=== PATIENT | female | born 1940 | race Caucasian/White ===

== ENCOUNTER 2024-11-23 14:35 | Outpatient (CLI) | payer MEDICARE, SELFPAY ==
[2024-11-23 16:11] LABS: Basophils % 0.9 % (0.1-2.0); Eosinophils # 0.2 Kmm3 (0.0-0.4); Eosinophils % 4.7 % (0.1-12.0); Hematocrit 40.5 % (37.0-47.0); Hemoglobin 13.6 g/dL (12.2-16.2); Immature Granulocytes # 0.02 10^3uL; Immature Granulocytes % 0.4 %; Lymphocytes # 1.3 K/mm3 (0.7-4.5); Lymphocytes % 28.5 % (10-50); Mean Corpuscular HGB Conc 33.6 g/dL (31.8-35.4); Mean Corpuscular Hemoglobin 29.7 pg (27.0-31.2); Mean Corpuscular Volume 88.4 fl (81-99); Mean Platelet Volume 10.4 fl (7.4-10.4); Monocytes # 0.4 K/mm3 (0.1-1.0); Monocytes % 8.1 % (1.7-9.3); Neutrophils # 2.7 K/mm3 (1.8-7.8); Neutrophils % 57.4 % (37.0-80.0); Nucleated Red Blood Cells # 0 10^3/uL; Nucleated Red Blood Cells % 0 %; Platelet Count 226 K/mm3 (142-424); Red Blood Count 4.58 M/mm3 (4.20-5.40); Red Cell Distribution Width 12.8 % (11.5-17.5); Red Cell Distribution Width-SD 41.1 fL; White Blood Count 4.7 K/mm3 (4.8-10.8)
[2024-11-23 17:06] LABS: Alanine Aminotransferase 20 U/L (12-78); Albumin Level 4.5 g/dl (3.5-5.0); Alkaline Phosphatase 58 U/L (38-126); Aspartate Amino Transferase 27 U/L (14-36); Bilirubin,Direct 0.3 mg/dl (0.0-0.4); Bilirubin,Indirect 0.2 mg/dL (0.0-0.9); Bilirubin,Total 0.5 mg/dl (0.2-1.3); Bilirubin,Unconjugated 0.2 mg/dL (0.0-1.1); Blood Urea Nitrogen 23 mg/dl (7-17); Calcium 9.6 mg/dl (8.4-10.2); Carbon Dioxide 30 mmol/L (22.0-30.0); Chloride 102 mmol/L (98-107); Chol/HDL Ratio 7.6 (1-3.5); Cholesterol 212 mg/dl (140-200); Estimated Glomerular Filt Rate 60 ml/min (>60); GFR (African American) 73 ML/MIN (>60); Glucose 83 mg/dl (74-100); HDL Cholesterol 28 mg/dl (40-60); Magnesium 2.1 mg/dl (1.6-2.3); Sodium 139 mmol/L (136-145); Total Protein,Serum 6.9 g/dl (6.3-8.2)
[2024-11-23 17:08] LABS: Triglycerides 435 mg/dl (30-150)
[2024-11-23 17:09] LABS: Anion Gap 10.5 mEq/L (5-15); Potassium 3.5 mmoL/L (3.5-5.1)
[2024-11-23 17:17] LABS: Direct LDL Cholesterol 97.99 mg/dL (100-129)
[2024-11-23 17:44] LABS: Hemoglobin A1C 5.2 % (4.0-6.0)
== END 2024-11-23 23:59 | disposition home or self-care (01) ==
LOC: LAB 16:14
PROVIDERS: PCP Family Medicine; Visit Provider Internal Medicine
DX: I34.0 Nonrheumatic mitral (valve) insufficiency (principal); I34.1 Nonrheumatic mitral (valve) prolapse; I10 Essential (primary) hypertension; I49.1 Atrial premature depolarization; I49.3 Ventricular premature depolarization; R94.31 Abnormal electrocardiogram [ECG] [EKG]; Z86.718 Personal history of other venous thrombosis and embolism
CPT/HCPCS: 36415; 80048; 80061; 80076; 83036; 83735; 84439; 84443; 85025; 93225; 93227

== ENCOUNTER 2024-11-25 15:14 | Outpatient (CLI) | payer MEDICARE, SELFPAY | END 2024-11-25 23:59 | disposition home or self-care (01) | LOC: RT 15:15 | PROVIDERS: PCP Family Medicine; Visit Provider Internal Medicine | DX: I44.0 Atrioventricular block, first degree (principal); I49.1 Atrial premature depolarization; I47.19 Other supraventricular tachycardia; I49.3 Ventricular premature depolarization; I34.1 Nonrheumatic mitral (valve) prolapse; I34.0 Nonrheumatic mitral (valve) insufficiency; I10 Essential (primary) hypertension; R94.31 Abnormal electrocardiogram [ECG] [EKG]; Z86.718 Personal history of other venous thrombosis and embolism | CPT/HCPCS: 93270 ==

== ENCOUNTER 2024-12-06 10:08 | Outpatient (CLI) | payer MEDICARE, SELFPAY ==
--- NOTE | 2024-12-06 10:30 | MR_ITS ---
APPROVED REPORT Cylinder Dyer: CLINICAL INDICATION Mitral valve prolapse, evaluation for mitral regurgitation TECHNIQUE Image Acquisition: Cardiac magnetic resonance (CMR) was performed on Siemens Espree MRI 1.5T scanner. Software platform sequences were performed using the Siemens Apropose MR B19 platform. A set of three-plane, low-resolution, large [id number] localizers were initially acquired. Then axial, coronal, sagittal TrueFISP, as well as axial HASTE images, were obtained. These were followed by gated TrueFISP breathold cinematic sequences obtained in the short axis with 8 mm slices and 2 mm gaps, 2-chamber (vertical long axis), 3-chamber, 4-chamber (horizontal long axis). A bolus of contrast was injected intravenously with first-pass sequences obtained in the short axis and four-chamber planes. After approximately 10 minutes, a TI topographical field assistant sequence was performed to determine the optimal TI time. Using the optimized TI time, delayed contrast enhancement segmented inversion???recovery TurboFLASH sequences were obtained in the short axis, 2-chamber, 3-chamber, and 4-chamber projections. 2D-velocity phase mapping was performed. Functional parameters were calculated by offline analysis on an independent workstation ([employer] Imaging Platform, [employer]). Contrast: ProHance??? (Gadoteridol) FINDINGS MORPHOLOGY AND FUNCTION Left ventricle: The left ventricle is normal in size. The indexed left ventricular end-diastolic volume (LVEDVi) is 64 ml/m2 (reference range 57-105 ml/m2 in males, 56-96 ml/m2 in females). Normal left ventricular systolic function is present. There is mild increase in left ventricular wall thickness, up to 11.5 mm. There are no regional wall motion abnormalities noted. LVEF is calculated at 58.0% (reference range 57-77%). Right ventricle: The right ventricle is normal in size. The indexed right ventricular end-diastolic volume (RVEDVi) is 72 ml/m2 (reference range 61-121 ml/m2 in males, 48-112 ml/m2 in females). Normal right ventricular systolic function is present. RVEF is calculated at 51.6% (reference range 52-72% in males, 51-71% in females). Atria: The left atrium is moderately dilated. The maximum indexed left atrial volume is 44 ml/m2 (reference range 26-52 ml/m2 in males, 27-53 ml/m2 in females). The right atrium is mildly dilated. The maximum indexed right atrial volume is 34 ml/m2 (reference range 18-90 ml/m2). Aorta: The diameter of the aortic annulus is normal, measuring 23 mm (coronal view reference range 21-30 mm in males, 19-27 mm in females). The diameter of the aortic sinus is normal, measuring 35 mm (coronal view reference range 25-42 mm in males, 24-36 mm in females). The diameter of the sinotubular junction is normal, measuring 25 mm (coronal view reference range 18-32 mm in males, 18-28 mm in females). The diameters of the ascending and descending thoracic aorta are normal. Main pulmonary artery: The main pulmonary artery diameter is normal. Pericardium: The pericardial thickness is normal. The pericardial thickness measures 1.0 mm (normal < 4.0 mm). There is no pericardial effusion. VALVES There is prolapse of the posterior mitral valve leaflet. No evidence of associated mitral annular disjunction (MAD). Mild mitral regurgitation is present. The MR jet is eccentric and anteriorly directed away from the prolapsed leaflet. Regurgitant volume is 17 mL on CMR (may be underestimated). Ratio of pulmonary to systemic flow, Qp:Qs ratio = 1.3 (normal < or = 1.2, hemodynamically significant shunt > 1.5), demonstrating no evidence of hemodynamically significant shunt. TISSUE CHARACTERIZATION Resting Perfusion: Normal myocardial blood flow at rest. No evidence of resting hypoperfusion. Myocardial Fibrosis and/or edema: Normal gadolinium kinetics are present. No evidence of late gadolinium enhancement is noted, consistent with absence of myocardial scarring, infarction, or necrosis. T2-weighted imaging demonstrates no evidence of myocardial edema or inflammation. OTHER Hiatal hernia is incidentally noted. IMPRESSION Normal LV size with normal LV systolic function. LVEDVi= 64 ml/m2 and LVEF= 58.0%. Normal RV size with normal RV systolic function. RVEDVi= 72 ml/m2 and RVEF= 51.6%. Biatrial enlargement. There is prolapse of the posterior mitral valve leaflet. No evidence of associated mitral annular disjunction (MAD). Mild mitral regurgitation is present. The MR jet is eccentric and anteriorly directed away from the prolapsed leaflet. Regurgitant volume is 17 mL on CMR (may be underestimated). No CMR evidence of myocardial scarring, infarction, or necrosis. No evidence of myocardial edema or inflammation. Perfusion analysis demonstrates normal blood flow at rest with no evidence of resting hypoperfusion. Ratio of pulmonary to systemic flow, Qp:Qs ratio = 1.3 (normal < or = 1.2, hemodynamically significant shunt > 1.5), demonstrating no evidence of hemodynamically significant shunt. Hiatal hernia is incidentally noted. COMPARISON None CRITICAL RESULT None COMMUNICATION Per this report The findings of this cardiac MR were reviewed, reported, and signed by Valdo Talavera MD ([employer] Member). Conclusion Electronically signed by : Kaila Talavera MD 12/25/2024 22:31:29
[2024-12-06] MEDS: SODIUM CHLORIDE 0.9% 10ML SYR (RAD ONLY) 10 ML IV (11:22)
[2024-12-06] MEDS: GADOTERIDOL INJ 20ML SYRINGE 16 ML IV (11:22)
[2024-12-06] MEDS: 0.9 % SODIUM CHLORIDE 50 ML VIAL 20 ML IV (11:22)
== END 2024-12-06 23:59 | disposition home or self-care (01) ==
LOC: RAD 10:09
PROVIDERS: PCP Family Medicine; Visit Provider Internal Medicine
DX: I34.1 Nonrheumatic mitral (valve) prolapse (principal); I51.7 Cardiomegaly; I34.0 Nonrheumatic mitral (valve) insufficiency; K44.9 Diaphragmatic hernia without obstruction or gangrene
CPT/HCPCS: 75561; A9576

== ENCOUNTER 2024-12-27 09:59 | Day surgery (SDC) | payer MEDICARE, SELFPAY ==
[2024-12-26 14:47] VITALS: BMI 25.5
--- NOTE | 2024-12-27 10:47 | ECG_ITS ---
APPROVED REPORT Exam: Resting ECG HR:57 bpm ECG Measurements Heart Rate 57 AXES CA 270 P 34 QRSd 93 QRS -24 QT 461 T 9 QTc 455 Conclusion SINUS BRADYCARDIA WITH FIRST DEGREE AV BLOCK LA Abnormality BORDERLINE LEFT AXIS DEVIATION [QRS AXIS < -20] MINIMAL ST DEPRESSION [0.025+ mV ST DEPRESSION] ABNORMAL ECG UNCONFIRMED REPORT Electronically signed by : Trip Long MD 12/28/2024 08:50:34
--- NOTE | 2024-12-27 11:00 | CA_ITS ---
APPROVED REPORT EXAM: Comprehensive 2D, Doppler, and color-flow Echocardiogram Marble Cutter: Irish Ferreira RVT Ht: 5 ft 7 in Wt: 163lbs BSA: 1.85 BP: 122/87 mmHg Indications: Mitral valve prolapse, chest pain Procedure After obtaining informed consent, patient underwent transesophageal echo in the [facility]. Type of Sedation : MAC Sedation start time: 12:30 Case end Time: 12:42 Transesophageal probe was inserted and advanced into esophagus without difficulty by Dr. Valdo Talavera. The CHRISTINE was performed without complications. Throughout the procedure, the blood pressure, pulse oximetry, cardiac rhythm, and rate were monitored. The patient tolerated the procedure without adverse effects. Recovery from conscious sedation was uneventful and vital signs were stable. Left Ventricle The left ventricle is normal size. The left ventricular systolic function is normal. The left ventricular ejection fraction is within the normal range. There is increased LV wall thickness. Proximal septal thickening is present. There is normal LV segmental wall motion. LVEF is 55%. Right Ventricle The right ventricle is normal size. The right ventricular systolic function is normal. Atria The left atrium is dilated. No thrombus is visualized in the left atrium or appendage. The right atrium is dilated. The interatrial septum is intact with no evidence for an atrial septal defect. Aortic Valve The aortic valve opens well. The aortic valve is trileaflet. There is no aortic valvular stenosis. No aortic regurgitation. Mitral Valve There is prolapse of the posterior mitral valve leaflet (P1-P2 segments). No evidence of mitral valve stenosis. Moderate mitral regurgitation is present. The mechanism of MR is degenerative due to posterior MV leaflet prolapse (Clementina class II). No evidence of flail segment or chordal rupture. The MR jet is eccentric and anteriorly directed away from the prolapsing segment. EROA by PISA method is 0.23 cm2. MR volume is 37 mL. Regurgitant fraction 27%. Tricuspid Valve Tricuspid valve is grossly normal in structure and function. Trace tricuspid regurgitation. There is insufficient TR jet to estimate RVSP. Pulmonic Valve The pulmonary valve is normal in structure. Trace pulmonic regurgitation. Great Vessels The aortic root is normal in size. Pericardium There is no pericardial effusion. Other Information Study Quality: Fair Conclusion Biventricular systolic function. Biatrial dilation. Prolapse of the posterior mitral valve leaflet (P1-P2 segments). Moderate MR (degenerative due to MV prolapse, Clementina class II). The MR jet is eccentric and anteriorly directed away from the prolapsing segment. EROA by PISA method is 0.23 cm2. MR volume is 37 mL. Regurgitant fraction 27%. No evidence of flail segment or chordal rupture. In the setting of posterior MV leaflet prolapse and moderate MR, BP control and serial TTE evaluations are suggested. Electronically signed by : Kaila Talavera MD 01/04/2025 00:47:32
[2024-12-27 11:01] LABS: Basophils # 0.1 K/mm3 (0-0.2); Eosinophils # 0.3 Kmm3 (0.0-0.4); Eosinophils % 5.2 % (0.1-12.0); Hematocrit 39.1 % (37.0-47.0); Hemoglobin 12.8 g/dL (12.2-16.2); Immature Granulocytes # 0.01 10^3uL; Immature Granulocytes % 0.2 %; Lymphocytes # 1.3 K/mm3 (0.7-4.5); Lymphocytes % 27.7 % (10-50); Mean Corpuscular HGB Conc 32.7 g/dL (31.8-35.4); Mean Corpuscular Hemoglobin 29.1 pg (27.0-31.2); Mean Corpuscular Volume 88.9 fl (81-99); Mean Platelet Volume 9.7 fl (7.4-10.4); Monocytes # 0.4 K/mm3 (0.1-1.0); Monocytes % 7.9 % (1.7-9.3); Neutrophils # 2.8 K/mm3 (1.8-7.8); Nucleated Red Blood Cells # 0 10^3/uL; Nucleated Red Blood Cells % 0 %; Platelet Count 197 K/mm3 (142-424); Red Cell Distribution Width 12.9 % (11.5-17.5); Red Cell Distribution Width-SD 41.9 fL; White Blood Count 4.8 K/mm3 (4.8-10.8)
[2024-12-27 11:11] LABS: Chloride 100 mmol/L (98-107); Potassium 3.3 mmoL/L (3.5-5.1); Sodium 141 mmol/L (136-145)
[2024-12-27 11:12] LABS: INR 0.96 (0.9-1.1); Prothrombin Time 10.7 seconds (10.1-12.5)
[2024-12-27 11:14] LABS: Anion Gap 12.3 mEq/L (5-15); Blood Urea Nitrogen 23 mg/dl (7-17); Calcium 9.7 mg/dl (8.4-10.2); Carbon Dioxide 32 mmol/L (22.0-30.0); Creatinine Clearance Estimated 51 mL/min (50-200); Estimated Glomerular Filt Rate 60 ml/min (>60); GFR (African American) 73 ML/MIN (>60); Glucose 89 mg/dl (74-100)
[2024-12-27 11:35] VITALS: BP 160/91; PULSE 59; RESP 16; TEMP 36.5; O2SAT 94
[2024-12-27] MEDS: LACTATED RINGERS 1000ML 1,000 ML 50 ML IV (11:44)
--- NOTE | 2024-12-27 12:06 | EXP.ANES.CKL ---
[facility] Disclaimer: The information contained in this section may have been updated after the patient was seen, as this information can be updated by other users. Medical History Mitral valve prolapse Palpitations Edema of both lower extremities History of DVT (deep vein thrombosis) Mitral valve regurgitation Abnormal electrocardiogram [ECG] [EKG] HTN (hypertension) Scoliosis Osteoarthritis HX: breast cancer Surgical History History of total right hip replacement Hx of cholecystectomy Family History (Updated 12/27/24 @ 11:35 by Violet Mccollum RN) Other Bladder cancer Dementia Hypertension Social History (Updated 12/27/24 @ 11:36 by Violet Mccollum RN) Smoking Status: Never smoker alcohol intake: never substance use type: denies use current occupational status: retired Travel in the last 8 weeks?: None caffeine: No [facility] Anesthesia Checklist Patient Identification Patient Identification: Arm Band Structural Data Admitted From: Home Planned Operative Procedure/s: CHRISTINE Consent for Planned Operative Procedure(s) Verified: Yes Verified Documents: Surgical Consent and History and Physical NPO Status Verified Time NPO: 00:00 Additional verifications Anesthesia Reactions: No Airway Assessment Mallampati Score:: Class II C-Spine Mobility Assessed: Yes TMJ Mobility Assessed: Yes Dentition: Good Dentition Neurological Assessment Level of Consciousness: Awake, Alert and Appropriate Anesthesia Plan Anesthesia Risk discussed: Yes Anesthesia Plan: Verified ASA Class: III Anesthesia Type: MAC
[2024-12-27 12:36] VITALS: BP 131/75; PULSE 69; RESP 16; TEMP 36.3; O2SAT 90
[2024-12-27 12:46] VITALS: BP 120/81; PULSE 68; RESP 16; O2SAT 99
[2024-12-27 13:06] VITALS: BP 123/76; PULSE 70; RESP 17; O2SAT 99
== END 2024-12-27 13:50 | disposition home or self-care (01) ==
PROVIDERS: Visit Provider Internal Medicine
DX: I34.1 Nonrheumatic mitral (valve) prolapse (principal); R00.2 Palpitations; I10 Essential (primary) hypertension; R60.0 Localized edema; R94.31 Abnormal electrocardiogram [ECG] [EKG]; Z86.718 Personal history of other venous thrombosis and embolism; Z82.49 Family history of ischemic heart disease and other diseases of the circulatory system; Z79.01 Long term (current) use of anticoagulants; Z79.2 Long term (current) use of antibiotics; Z79.899 Other long term (current) drug therapy; Z79.1 Long term (current) use of non-steroidal anti-inflammatories (NSAID); Z88.0 Allergy status to penicillin; Z88.8 Allergy status to other drugs, medicaments and biological substances
CPT/HCPCS: 36415; 80048; 85025; 85610; 93005; 93270; 93312; 93319; J2003; J2704; J7120